=== PATIENT | male | born 1950 | race Caucasian/White ===

== ENCOUNTER → 2017-02-20 | Outpatient (CLI) | payer OTHER ==
--- NOTE | 2017-02-20 10:46 | RAD ---
Right lower extremity nonvascular ultrasound History: Right posterior calf on for 7 days. Comparison: None. Findings: Ultrasound imaging was performed of the right posterior calf by sand technologist. In the area of interest, there is a complex mass with cystic and soft tissue components. Mass is estimated to measure 5.6 cm in length x 1.9 cm in transverse dimension x 1.1 cm AP dimension. There is vascularity within the mass. Impression: Palpable lump in posterior calf corresponds to a complex cystic and solid appearing mass with internal vascularity measuring 5.6 x 1.9 x 1.1 cm. Further evaluation could be made with radiographs of the lower leg and MR imaging with and without intravenous contrast.
== END | disposition home or self-care (01) ==
LOC: US 09:19
PROVIDERS: ATTEND Physician Assistant
DX: R22.41 Localized swelling, mass and lump, right lower limb (principal)
CPT/HCPCS: 76881

== ENCOUNTER → 2017-09-17 | Outpatient (CLI) | payer OTHER ==
[2017-09-17 10:50] LABS: CALCIUM 8.9 mg/dL (8.5-10.1); CREATININE 0.9 mg/dL (0.7-1.3); GFR 84.4; POTASSIUM 4.7 mmol/L (3.5-5.1)
== END | disposition home or self-care (01) ==
LOC: LAB 08:28
PROVIDERS: ATTEND Physician Assistant
DX: Z12.5 Encounter for screening for malignant neoplasm of prostate (principal); R97.20 Elevated prostate specific antigen [PSA]
CPT/HCPCS: 36415; 80048; G0103